=== PATIENT | female | born 1995 | race Two or more races ===

== ENCOUNTER 2016-11-14 18:53 | Observation (INO) | payer BC, MEDICAID | END 2016-11-14 20:39 | disposition home or self-care (01) | DRG 782 | LOC: LDRP 18:53 | PROVIDERS: ADMIT Specialist; ATTEND Specialist | DX: O36.8130 Decreased fetal movements, third trimester, not applicable or unspecified (principal); Z3A.28 28 weeks gestation of pregnancy | CPT/HCPCS: 59025; 76818; 81002; G0378 ==